=== PATIENT | male | born 1965 | race Caucasian/White ===

== ENCOUNTER 2022-08-27 00:25 | Day surgery (SDC) | payer BC, SELFPAY ==
[2022-08-15 13:37] VITALS: BMI 41.2
[2022-08-27 06:16] VITALS: BP 140/102; PULSE 78; RESP 17; TEMP 36.1; O2SAT 99; BMI 40.6
[2022-08-27] MEDS: LACTATED RINGERS 1,000 ML 150 ML IV CONT (06:28)
[2022-08-27 06:30] LABS: Glucose Point of Care 185 mg/dl (65-105)
--- NOTE | 2022-08-27 07:27 | WPDANESEPPF ---
Anes - Initial Pre Proc Eval Procedure: Operation Date: 08/27/22 07:30 Proposed Procedures p Esophagogastroduodenoscopy - Brodie Guaman MD Date/Time: 08/27/22 07:27 Surgeon: Brodie Guaman MD Pre Op Diagnosis: cirrhosis of the liver Patient Data Age: 57 Gender: M Height: 2.01 m Weight: 163.4 kg Last Vital Signs Temp 97 F L 08/27/22 06:16 Pulse 78 08/27/22 06:16 Resp 17 08/27/22 06:16 BP 140/102 H 08/27/22 06:16 Pulse Ox 99 08/27/22 06:16 O2 Del Method Room Air 08/27/22 06:16 Allergies Allergy/AdvReac Type Severity Reaction Status Date / Time No Known Allergies Allergy Verified 08/27/22 06:15 Home Medications Medication Instructions Recorded Confirmed Type ascorbic acid (vitamin C) 1,000 mg 1 g PO DAILY 08/06/22 08/27/22 History capsule cetirizine 10 mg disintegrating 10 mg PO DAILY 08/06/22 08/27/22 History tablet dapagliflozin 10 mg tablet 10 mg PO DAILY 08/06/22 08/27/22 History (Farxiga) digoxin 250 mcg (0.25 mg) tablet 250 mcg PO DAILY 08/06/22 08/27/22 History flecainide 100 mg tablet 100 mg PO BID 08/06/22 08/27/22 History icosapent ethyl 1 gram capsule 2 g PO BID 08/06/22 08/27/22 History levothyroxine 150 mcg capsule 150 mcg PO DAILY 08/06/22 08/27/22 History metformin 1,000 mg tablet 1,000 mg PO BID 08/06/22 08/27/22 History metoprolol succinate 100 mg 100 mg PO DAILY 08/06/22 08/27/22 History capsule sprinkle, ext. release 24 hr pantoprazole 40 mg tablet,delayed 40 mg PO QAM 08/06/22 08/27/22 History release rosuvastatin 10 mg tablet 10 mg PO DAILY 08/06/22 08/27/22 History semaglutide 1 mg/dose (2 mg/1.5 1 mg subcut WEEKLY 08/06/22 08/27/22 History mL) subcutaneous pen injector (Ozempic) valsartan 320 mg tablet 320 mg PO DAILY 08/06/22 08/27/22 History warfarin 5 mg tablet 7.5 mg PO DIRECTED 08/15/22 08/27/22 History warfarin 5 mg tablet 10 mg PO DIRECTED 08/15/22 08/27/22 History Laboratory Tests 08/27/22 06:22 POC Capillary Glucose 185 mg/dl H mg/dl (65-105) Patient hx anesthesia problems: none Family hx anesthesia problems: none Results Review: All pre-operative results and documents have been reviewed as part of the pre-operative evaluation. [facility] Past Medical History Medical History (Updated 08/13/22 @ 15:24 by ARTEMIO WhiteN-[facility]) Abdominal lymphadenopathy Adenomatous colon polyp Afib Cholelithiases Cirrhosis Diabetes Elevated alpha fetoprotein GERD (gastroesophageal reflux disease) HTN (hypertension) Hyperlipidemia Hypothyroidism Obesity Family History Family History Other Family history of arthritis Family history of lung cancer Family history of obesity Family history of thyroid disease Hypertension Social History Social History Years smoked: 17.5 Smoking status: Former smoker Tobacco type: cigarettes Alcohol intake: former Substance use: never Substance use type: does not use Living arrangements: with family Spiritual care concerns: No Anes - Eval Final PreProcedure Day of Procedure 08/27/22 07:27 Patient weight: morbidly obese Heart: regular rate and rhythm Lungs: clear to auscultation Airway: Mallampati scale class III Neurological: alert and oriented Last oral intake: >/= 8 hours ASA classification: IV Emergent: no Anesthetic plan: proceed Anesthesia type and monitoring: general GIVS and standard monitoring Results Review: All pre-operative results and documents have been reviewed as part of the pre-operative evaluation. Informed Consent: The patient's anesthetic plan and its attendant risks and benefits were discussed with the patient/family/POA. Questions were solicited and answers provided to the satisfaction of the patient/family/POA.
--- NOTE | 2022-08-27 07:30 | WPDHPUPDATE1 ---
History and Physical Update Update Date/Time: 08/27/22 07:30 History and Physical has been reviewed, including an updated exam of the patient. There are NO changes in the patient's condition. Risks, benefits, and alternatives have been discussed and questions answered. Patient agrees to proceed with procedure.
[2022-08-27 07:38] VITALS: BP 99/66; PULSE 95; RESP 19; O2SAT 96
[2022-08-27 07:48] VITALS: BP 106/67; PULSE 86; RESP 26; O2SAT 97
[2022-08-27 07:58] VITALS: BP 103/80; PULSE 83; RESP 22; O2SAT 100
== END 2022-08-27 08:07 | disposition home or self-care (01) ==
PROVIDERS: PCP Family Medicine; Visit Provider Internal Medicine Gastroenterology
PROC: 0DJ08ZZ Inspection of Upper Intestinal Tract, Via Natural or Artificial Opening Endoscopic (ICD-10-PCS; CPT 43235; principal; 2022-08-27 07:30)
DX: K21.9 Gastro-esophageal reflux disease without esophagitis (principal); K29.70 Gastritis, unspecified, without bleeding; K74.60 Unspecified cirrhosis of liver; I48.91 Unspecified atrial fibrillation; E11.9 Type 2 diabetes mellitus without complications; I10 Essential (primary) hypertension; E78.5 Hyperlipidemia, unspecified; E03.9 Hypothyroidism, unspecified; E66.01 Morbid (severe) obesity due to excess calories; Z68.41 Body mass index [BMI] 40.0-44.9, adult; Z87.891 Personal history of nicotine dependence; Z79.84 Long term (current) use of oral hypoglycemic drugs; Z79.899 Other long term (current) drug therapy; Z79.01 Long term (current) use of anticoagulants
CPT/HCPCS: 43239; 82948; 88305; J2704; J7120

== ENCOUNTER 2022-09-01 12:48 | Outpatient (CLI) | payer BC, SELFPAY ==
--- NOTE | ~2022-09-01 | MR_ITS ---
EXAMINATION: MR abdomen wo/w con DATE: 09/01/2022 14:39 INDICATION: Cirrhosis of the liver. Elevated alpha-fetoprotein. TECHNIQUE: Magnetic resonance imaging (MRI) of the abdomen was performed without and with 20 mL Multi Gaetano intravenous contrast. COMPARISON: None. FINDINGS: The liver demonstrates diffuse steatosis and surface nodularity, consistent with cirrhosis. There is a 7 mm focus of arterial hyperenhancement in right hepatic lobe without washout. There are cysts in t he liver measuring up to 11 mm. There is a gallstone in the gallbladder, which is normal in size. The spleen is normal in size. The pancreas and adrenal glands are normal. There are cysts in the kidneys measuring up to 2.6 cm on the left. There are no dilated loops of bowel. There are no pathologically enlarged lymph nodes. There is no free intraperitoneal fluid. IMPRESSION: 1. LI-RADS LR3: Intermediate probability of hepatocellular carcinoma. Consider abdomen MRI without an d with contrast in 6 months. Reviewed, dictated and finalized at location A. [facility] IMPRESSION: 1. LI-RADS LR3: Intermediate probability of hepatocellular carcinoma. Consider abdomen MRI without and with contrast in 6 months.
== END 2022-09-01 12:49 | disposition home or self-care (01) ==
PROVIDERS: PCP Family Medicine; Visit Provider Nurse Practitioner Family
DX: K74.60 Unspecified cirrhosis of liver (principal); R77.2 Abnormality of alphafetoprotein; R93.5 Abnormal findings on diagnostic imaging of other abdominal regions, including retroperitoneum
CPT/HCPCS: 74183; A9577